=== PATIENT | female | born 1950 | race African-American/Black ===

== ENCOUNTER → 2017-07-06 | Day surgery (SDC) | payer MEDICARE ==
--- NOTE | 2017-07-03 14:01 | Diagnostic Imaging Report ---
PROCEDURE: Frontal and lateral views of the chest. COMPARISON: None. INDICATIONS: PREOPERATIVE CHEST XRAY FOR FOOT SURGERY FINDINGS: Lines/tubes: None. Lungs: The lungs are well inflated and clear. There is no evidence of pneumonia or pulmonary edema. Pleura: There is no pleural effusion or pneumothorax. Heart and mediastinum: The heart and the mediastinum are normal. Bones: No acute bony abnormality. IMPRESSION: 1. No acute cardiopulmonary disease. Jose A Dillon M.D. Dictated by: Jose A Dillon M.D. on 07/03/2017 at 14:10 Electronically approved by: Jose A Dillon M.D. on 07/03/2017 at 14:10
[~2017-07-06] MED LIST: ACETAMINOPHEN 1000 MG/100 ML IV ONE; ADVIL200 M1 PO; ALLEGRA-D 12 H1 EACH PO; BUPIVACAINE HCL 0.5% 10ML MPF VIAL INJ ONE; DEXAMETHASONE SOD PHOS INJ 4 MG/ML VIAL ONE; DOXYCYCLINE HY100 MG PO; FENTANYL CITRATE/PF 100MCG/2 ML INJ ONE; LIDOCAINE HCL 2% LOCAL INJ 5 ML SDV VIAL INJ ONE; MIDAZOLAM HCL 2 MG/2 ML VIAL ONE; NEOMYCIN/POLYMYX/BACITR OINT 0.9 GM PKT ONE; ONDANSETRON HCL INJ 2 MG/ML VIAL ONE; PROPOFOL IV EMULSION 10 MG/ML 20 ML VIAL ONE; SEVOFLURANE INHAL SOLN 250 ML PEN BTL ONE; ZOCOR40 MG PO
--- OUTSIDE RECORDS SUMMARY | 2017-07-06 05:36 | XMS REPORT ---
Author Author [facility] Address Unknown Phone Unavailable Care Team Providers Care Chef & Owner Name Role Phone CY AMARO PP Unavailable BOBBY CARTER Unavailable Unavailable Problems This patient has no known problems. Allergies, Adverse Reactions, Alerts This patient has no known allergies or adverse reactions. Medications This patient has no known medications. Encounters Start Date/Time End Date/Time Encounter Type Admission Type Attending Clinicians Care Facility Care Department Encounter ID 2017-02-26 10:57:00 2017-02-26 10:57:00 Outpatient [facility] [id number] Results Test Description Test Time Test Comments Text Results Atomic Results Result Comments CHEST 2 VIEWS [place] [address] Patient Name: YOSELYN STERN MR #: [id number] : 1950 Age/Sex: 66/F Req # : [id number] Adm Physician: Ordered by: BOBBY CARTER DPM Report #: [id number] Location: OR Room/Bed: Procedure: [id number] DX/CHEST 2 VIEWS Exam Date: 07/03/17 Exam Time: 1245 REPORT STATUS: Signed PROCEDURE: Frontal and lateral views of the chest. COMPARISON: None. INDICATIONS: PREOPERATIVE CHEST XRAY FOR FOOT SURGERY FINDINGS: Lines/tubes: None. Lungs: The lungs are well inflated and clear. There is no evidence of pneumonia or pulmonary edema. Pleura: There is no pleural effusion or pneumothorax. Heart and mediastinum: The heart and the mediastinum are normal. Bones: No acute bony abnormality. IMPRESSION: 1. No acute cardiopulmonary disease. Jose A Rojo M.D. Dictated by: Jose A Rojo M.D. on 07/03/2017 at 14:10 Electronically approved by: Jose A Rojo M.D. on 07/03/2017 at 14:10 Dictated By: VIVEK ROJO MD, MD [id number] Transcribed By: FERMÍN on 07/03/17 1410 COPY TO: BOBBY CARTER DPM
--- NOTE | 2017-07-06 12:47 | Operative Report ---
DATE OF PROCEDURE: July 06, 2017 PREOPERATIVE DIAGNOSIS: POSTOPERATIVE DIAGNOSIS: NO DICTATION, length 0 minutes 21 seconds. Job#: [id number]
--- NOTE | 2017-07-06 12:48 | Operative Report ---
DATE OF PROCEDURE: July 06, 2017 PREOPERATIVE DIAGNOSES 1. Contracted plantar fascia. 2. A large heel spur, left foot. POSTOPERATIVE DIAGNOSES 1. Contracted plantar fascia. 2. A large heel spur, left foot. TITLE OF OPERATION: Endoscopic plantar fasciotomy with resection of heel spur, left foot. ANESTHESIA: General endotracheal. HEMOSTASIS: A left thigh tourniquet at 350 mmHg. PROCEDURE IN DETAIL: The patient was taken to the operating room in a mildly sedated state and placed upon the operating table in the supine position. Following induction of general anesthetic, the left lower extremity was elevated to 60 degrees to exsanguinate before inflating the pneumatic thigh tourniquet to 350 mmHg to create hemostasis. Left lower extremity was placed upon the operating table prior to performing for the following procedures: Procedure #1: Endoscopic plantar fasciotomy. A medial stab incision was placed, and the cannula was inserted across the plantar aspect of the plantar fascia. Utilizing a hook knife, the fascia was lengthened the appropriate amount showing significant relief of the pressure along the central arch. The area was irrigated with copious amounts of sterile saline solution. Deep closure was 3-0 Vicryl and 4-0 nylon. Attention was directed to the spur itself where a, through a linear incision, a rasp was used to actually clean and remove the spur itself. This area was rasped smooth with a reciprocal rasp and curet. The area was irrigated with copious amounts of sterile saline solution and closed with 4-0 nylon. A TLS drain was inserted near the area of the previous bone spur. The TLS was noted to be functional after release of the pneumatic thigh tourniquet, and 4-0 nylon was used on the incision sites. The appropriate mildly compressive dressings were applied, and 0.5 Marcaine, Decadron [place] and human tissue allograft were injected into the plantar medial aspect of the calcaneus. Release of the pneumatic thigh tourniquet showed a normal hyperemic flush to all digits of the left foot. Patient left the operating room with vital signs stable and in apparent satisfactory condition, having tolerated both anesthetic and procedure very well. Job#: [id number]
== END | disposition home or self-care (01) ==
LOC: OR 05:33
PROVIDERS: ATTEND Podiatrist Foot Surgery
DX: M77.32 Calcaneal spur, left foot (principal); M72.2 Plantar fascial fibromatosis; Z01.810 Encounter for preprocedural cardiovascular examination; Z01.818 Encounter for other preprocedural examination
CPT/HCPCS: 28104; 29893; 71046; 93005; C1762; J1100; J2001; J2250; J2405; 76000